=== PATIENT | female | born 1980 | race American Indian/Alaskan Native ===

== ENCOUNTER 2018-11-02 06:17 | Day surgery (SDC) | payer OTHER ==
[~2018-11-02 06:17] MED LIST: LACTATED RINGERS 1,000 ML IV SCH
[2018-11-02] MEDS ORDERED: NACL BACTERIOSTATIC INFILTRATI ONE (07:00)
--- NOTE | 2018-11-02 07:17 | Anesthesia Consultation ---
Anesthesia Consult and Med Hx Date of service: 11/02/18 - Airway Anesthetic Teeth Evaluation: Poor (careous #9, 10) Mallampati Class: Class III Intubation Access Assessment: Possibly Difficult - Pre-Operative Health Status ASA Pre-Surgery Classification: ASA3 Proposed Anesthetic Plan: General - Pulmonary Hx Sleep Apnea: Yes (snoring) - Central Nervous System Hx Psychiatric Problems: No - Other Systems Hx Cancer: No Hx Obesity: Yes (BMI 53.3)
--- NOTE | 2018-11-02 07:18 | Anesthesia Day of Surgery ---
Anesthesia Day of Surgery - Day of Surgery Patient Examined: Yes Patient H&P Reviewed: Yes Patient is NPO: Yes
[2018-11-02] MEDS ORDERED: DILAUDID ONE (07:24)
[2018-11-02] MEDS ORDERED: XYLOCAINE MPF 2% ONE (07:25)
[2018-11-02] MEDS ORDERED: DIPRIVAN 10 MG/ML IV ONE (07:25)
[2018-11-02] MEDS ORDERED: ZOFRAN IV PRN (07:27)
[2018-11-02] MEDS ORDERED: DILAUDID IV PRN (07:27)
[2018-11-02] MEDS ORDERED: SILVER NITRATE TP ONE (07:49)
[2018-11-02] MEDS ORDERED: MONSEL'S TP ONE (07:49)
[2018-11-02] MEDS ORDERED: PEPCID IV NR (08:00)
[2018-11-02] MEDS ORDERED: VERSED IV NR (08:00)
[2018-11-02] MEDS ORDERED: NACL 0.9% IR ONE (09:58)
[2018-11-02] MEDS ORDERED: ZOFRAN ONE (10:15)
[2018-11-02] MEDS ORDERED: TORADOL ONE (10:15)
--- NOTE | 2018-11-02 10:54 | Operative Report ---
Operative Report Operative Report: Preoperative diagnosis: 1. Abnormal uterine bleeding. 2. Thickened endometrium. Postoperative diagnosis: 1. Abnormal uterine bleeding. 2. Thickened endometrium. 3. Endometrial polyp. Procedure: 1. Hysteroscopy. 2. D&C. 3. Endometrial polypectomy. Surgeon: Dr. Marks Assistant Branch Manager: none Anesthesia: IV sedation with MAC. EBL: minimal IVF: RL 1 liter Complications: none Procedure details: The risks, benefits, and alternatives of the procedure were discussed in detail with the patient which included but not limited to infection, hemorrhage requiring a, and uterine perforation. The patient expressed understanding, her questions answered, and she gave informed consent. The patient was taken to the operating room with an IVF infusing Ringer's lactate. In the operating room, she was placed in the dorsal supine position and given IV sedation with MAC. Then, she was placed on the stirrups in a do rsal lithotomy position. The perineum vagina and cervix were washed and she was prepared and draped in the usual sterile fashion. Examination under anesthesia revealed normal external genitalia and vagina. The cervix was closed, long, posterior with mild bleeding at the os. The uterus was 9-weeks size, anteverted, mobile. The adnexae were nonpalpable. A weighted speculum was placed placed on the posterior vaginal wall. The anterior lip of the cervix was grasped with a single-tooth tenaculum. Endocervical curettage was done. The cervical os was dilated and the hysteroscope was introduced into the uterine cavity. It revealed thickened endometrial lining with a small polyp. The ostia were not visualized. The hysteroscope was removed from the uterine cavity. The polyp was removed. A gentle curettage was performed and until a gritty texture was noticed. The specimen which consisted of ECC, EMC and endometrial polyp was sent to pathology. The instruments were removed from the cervix and vagina. The count of laps, needles, sponges, and instrument were correct 2. The patient tolerated the procedure well. She was awakened from the anesthesia and taken to the recovery room in a stable condition.
[2018-11-02 12:01] VITALS: BP 111/47
--- NOTE | 2018-11-02 12:05 | Post Anesthesia Evaluation ---
- Post Anesthesia Evaluation Patient Participated: Yes Airway Patent: Yes Stable Respiratory Function: Yes Nausea/Vomiting: No Temp > 96.8F: Yes Pain Manageable: Yes Adequeate Hydration: Yes Anesthesia Complications: No Block Receding Appropriately: Not Applicable Patient on Ventilator: No
== END 2018-11-02 12:20 | disposition home or self-care (01) ==
LOC: OR 06:17
PROVIDERS: ATTEND Obstetrics & Gynecology
DX: N84.0 Polyp of corpus uteri (principal); N93.9 Abnormal uterine and vaginal bleeding, unspecified; R93.89 Abnormal findings on diagnostic imaging of other specified body structures; G43.909 Migraine, unspecified, not intractable, without status migrainosus; G47.30 Sleep apnea, unspecified; E66.9 Obesity, unspecified; Z79.899 Other long term (current) drug therapy; Z68.43 Body mass index [BMI] 50.0-59.9, adult; Z98.890 Other specified postprocedural states; Z88.8 Allergy status to other drugs, medicaments and biological substances
CPT/HCPCS: 58558; 81025; 88305; A4217; J1170; J1885; J2250; J2405; J2704; J7120